=== PATIENT | female | born 1990 | race African-American/Black ===

== ENCOUNTER 2018-03-18 10:24 | Emergency (ER) | payer OTHER ==
[~2018-03-18] VITALS: Ht 167.6 cm; Wt 72.6 kg
[~2018-03-18 10:24] MED LIST: CLARITIN10 MG PO; FIORICET 50-321 EACH PO; FLEXERIL PO; IBUPROFEN 600600 M1 PO; MEDROLDOSEPACK PO; MOBIC15 MG PO; NOHOMEMEDICATIONS; NORCO 5-325 TA1 EACH PO; PROTONIX40 M2 PO; TRAMADOL 50 MG50 MG PO; TRINATE TABLET1 TAB PO; ULTRAM 50MG TAB50 MG PO; VALIUM2 MG PO
[2018-03-18] MEDS ORDERED: IBUPROFEN 600600 M1 PO (11:13)
[2018-03-18 11:18] VITALS: BP 109/57
== END 2018-03-18 11:31 | disposition home or self-care (01) ==
LOC: ER 10:24
DX: S09.90XA Unspecified injury of head, initial encounter (principal); S16.1XXA Strain of muscle, fascia and tendon at neck level, initial encounter; W19.XXXA Unspecified fall, initial encounter; Y93.89 Activity, other specified; Y92.89 Other specified places as the place of occurrence of the external cause; Y99.8 Other external cause status